=== PATIENT | male | born 1950 | race Caucasian/White ===

== ENCOUNTER 2025-09-04 09:52 | Inpatient (IN) | payer OTHER ==
[~2025-09-04] VITALS: Ht 180.3 cm; Wt 115.6 kg
[2025-09-04 10:03] VITALS: TEMP 99
--- NOTE | 2025-09-04 10:23 | ED.PDOC ---
HPI Comments 75-year-old male presents here with sharp chest discomfort to the middle of his chest that lasted about 3 hours. He states this occurred in the middle of the night he was sitting in his recliner watching TV as he was unable to sleep. States he was sleeping no more than 15 minutes. He states this was unprovoked. He states eventually this chest pain subsided by itself. No history of similar pain in the past. Currently chest pain free. States he has not been sick recently. No recent cough cold runny nose fever or chills. Chief Complaint: Chest Pain Time Seen by MD: 10:55 Reviewed Notes: Nurses Notes, Medications, Allergies Allergies: Uncoded Allergies: PENICILLIN (Allergy, Severe, 09/04/25) Information Source: Patient Mode of Arrival: Ambulatory Severity: Moderate Timing: Hours Duration: Hours Prehospital treatment: None Location: Chest (R), Chest (L) Radiation: No Radiation Onset: With Light Exertion Cardiac Risk Factors: None PE Risk Factors: None History of: None Associated Signs and Symptoms: None Past Medical History PAST MEDICAL HISTORY: DM, High Lipids, HTN Past Medical History (Other): glaucoma Surgical History (Other): glaucoma sx, lithotripsy Family History Family History: Reviewed,noncontributory to illness, Unknown Social History Smoker: Non-Smoker Alcohol: Denies ETOH Use Drugs: Denies Drug Use Lives In: Home Constitutional: denies: chills, diaphoresis, fatigue, fever, malaise, sweats, weakness, others EENTM: denies: blurred vision, double vision, ear bleeding, ear discharge, ear drainage, ear pain, ear ringing, eye pain, eye redness, hearing loss, mouth pain, mouth swelling, nasal discharge, nose bleeding, nose congestion, nose pain, photophobia, tearing, throat pain, throat swelling, voice changes, others Respiratory: denies: cough, hemoptysis, orthopnea, SOB at rest, shortness of breath, SOB with excertion, stridor, wheezing, others Cardiovascular: reports: chest pain; denies: dizzy spells, diaphoresis, Dyspnea on exertion, edema, irregular heart beat, left arm pain, lightheadedness, palpitations, PND, syncope, others Gastrointestinal: denies: abdomen distended, abdominal pain, blood streaked bowels, constipated, diarrhea, dysphagia, difficulty swallowing, hematemesis, melena, nausea, poor appetite, poor fluid intake, rectal bleeding, rectal pain, vomiting, others Genitourinary: denies: burning, dysuria, flank pain, frequency, hematuria, inc ontinence, penile discharge, penile sore, pain, testicle pain, testicle swelling, urgency, others Neurological: denies: dizziness, fainting, headache, left sided numbness, left sided weakness, numbness, paresthesia, pre-existing deficit, right sided numbness, right sided weakness, seizure, speech problems, tingling, tremors, weakness, others Integumetry: denies: bruises, change in color, change in hair/nails, dryness, laceration, lesions, lumps, rash, wounds, others Allergic/Immunocompromised: denies: Difficulty Healing, Frequent Infections, Hives, Itching, others Hematologic/Lymphatic: denies: anemia, blood clots, easy bleeding, easy bruising, swollen glands, others Endocrine: denies: excessive hunger, excessive sweating, excessive thirst, excessive urination, flushing, intolerance to cold, intolerance to heat, unexplained weight gain, unexplained weight loss, others Psychiatric: denies: anxiety, bipolar disorder, depression, hopeless, panic disorder, schizophrenia, sleepless, suicidal, others All Other Systems: Reviewed and Negative Physical Exam General Appearance: No Apparent Distress, Normal HEENT: Normal ENT Inspection, Pharynx Normal, TMs Normal Neck: Full Range of Motion, Non-Tender, Normal, Normal Inspection Respiratory: Chest Non-Tender, Lungs Clear, No Accessory Muscle Use, No Respiratory Distress, Normal Breath Sounds Cardiovascular: No Edema, No JVD, No Murmur, No Gallop, Normal Peripheral Pulses, Regular Rate/Rhythm Breast Exam: Deferred Gastrointestinal: No Organomegaly, Non Tender, No Pulsatile Mass, Normal Bowel Sounds, Soft Genitalia: Deferred Pelvic: Deferred Rectal: Deferred Extremities: No calf tenderness, Normal capillary refill, Normal inspection, Normal range of motion, Non-tender, No pedal edema Musculoskeletal : Apperance: Normal Neurologic: Alert, No Motor Deficits, Normal Affect, Normal Mood, No Sensory Deficits Cerebellar Function: Normal Reflexes: Normal Skin: Dry, Normal Color, Warm Lymphatic: No Adenopathy EKG EKG #1: Pulse Rate (adult): 69 [place]: Normal Cardiac Rhythm: NSR Block: None Hypertrophy: None ST: Normal Comments Sinus rhythms rate of 69 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 Was a procedure done?: No CP Differential Dx Differential Diagnosis: Anxiety / Panic Attack, Other Differential Diagnosis: N/A Differential Diagnosis: Angina, Aortic dissection, Cholelithiasis, Costochondritis, Esophageal reflux/spasm, Myocardial Infarction, Pneumonia, Pneumothorax, Pulmonary Embolus, Other (CHEST PAIN) Comment gastritis X-Ray, Labs, Meds, VS Vital Signs Date Time Temp Pulse Resp B/P (MAP) Pulse Ox O2 Delivery O2 Flow Rate FiO2 09/04/25 10:59 69 09/04/25 10:56 66 09/04/25 10:11 69 09/04/25 10:03 99.0 69 17 182/82 95 99.0 Lab Test 09/04/25 11:59 09/04/25 11:02 Range/Units Troponin I High Sensitivity Pending 3 L </=54 ng/L White Blood Count 5.3 4.4-10.8 10^3/uL Red Blood Count 5.16 4.5-5.90 10^6/uL Hemoglobin 14.4 13.5-17.5 g/dL Hematocrit 42.6 41.0-53.0 % Mean Corpuscular Volume 82.6 80.0-100.0 fL Mean Corpuscular Hemoglobin 27.8 L 28.0-32.0 pg Mean Corpuscular Hemoglobin Concent 33.7 32.0-36.0 g/dL Red Cell Distribution Width 17.1 H 11.8-14.3 % Platelet Count 139 L 140-450 10^3/uL Mean Platelet Volume 7.7 6.9-10.8 fL Neutrophils (%) (Auto) 57.8 37.0-80.0 % Lymphocytes (%) (Auto) 23.1 10.0-50.0 % Monocytes (%) (Auto) 9.6 0.0-12.0 % Eosinophils (%) (Auto) 8.0 H 0.0-7.0 % Basophils (%) (Auto) 1.5 0.0-2.0 % Neutrophils # (Auto) 3.1 1.6-8.6 10 ^3/uL Lymphocytes # (Auto) 1.2 0.4-5.4 10 ^3/uL Monocytes # (Auto) 0.5 0-1.3 10 ^3/uL Eosinophils # (Auto) 0.4 0-0.8 10 ^3/uL Basophils # (Auto) 0.1 0-0.2 10 ^3/uL Nucleated Red Blood Cells 0.0 % Sodium Level 137 136-145 mmol/L Potassium Level 4.1 3.5-5.1 mmol/L Chloride Level 104 98-107 mmol/L Carbon Dioxide Level 22 20-31 mmol/L Anion Gap 11 5-15 Blood Urea Nitrogen 10 9-23 mg/dL Creatinine 0.95 0.700-1.30 mg/dL Glomerular Filtration Rate Calc 82 >90 mL/min BUN/Creatinine Ratio 10.5 10.0-20.0 Serum Glucose 130 H 74-106 mg/dL Calcium Level 9.6 8.7-10.4 mg/dL [place] [id number] Ph: [phone] DIAGNOSTIC IMAGING Diagnostic Imaging Report : [id number] Signed PATIENT: JOEY SELBY ACCT: [id number] UNIT: [id number] : 1950 LOC: ER ROOM / BED: / AGE / SEX: 75 / M ADM STATUS: REG ER SERVICE 1050 ORDERING PHYSICIAN: MERRICK HERNADEZ MD PROCEDURE(s): CXR2 - CHEST TWO VIEWS ROUTINE REASON: Chest pain ORDER NUMBER(s): [id number], ACCESSION NUMBER(s): [id number] CHEST RADIOGRAPH Indication: Chest pain Technique: Frontal and lateral view of the chest was obtained Comparison: XY CHEST PORTABLE on DOS: 03/30/24 FINDINGS: Lines and Tubes: None Lungs: Left basilar subsegmental atelectasis. Pleura: No effusion. No pneumothorax. Cardiomediastinal contours: Unremarkable Bones: Unremarkable IMPRESSION: Left basilar subsegmental atelectasis ATED BY: TONI MENDOZA MD DICTATED DATE/TIME: 10/10/25 1125 SIGNED BY: TONI MENDOZA MD SIGNED DATE/TIME: 09/04/251124 CC: 75-year-old male presents here with chest discomfort. Reports sharp chest pain to the mid chest with no radiation. Patient states this occurred in the middle of the night while he was half awake watching TV in his recliner. EKG demonstrates right bundle-branch block and left fascicular block. No ST changes x2. Troponin is negative. CBC BMP unremarkable. Chest x-ray with no evidence of pneumonia pneumothorax or widened mediastinum that would suggest aortic dissection. Patient is currently chest pain free. However he does have several risk factors including diabetes hyperlipidemia hypertension. And his age. At this time he does have a heart score of 5. I have given aspirin in the ER. I feel he would benefit from inpatient admission. Patient is agreeable. Hospitalist team has been contacted. Time of 1ST Reevaluation: : Reevaluation 1ST: Unchanged Patient Education/Counseling: Diagnosis, Treatment, Prognosis Family Education/Counseling: No Family Present SEPSIS Sepsis Screen Date sepsis recognized/suspect: Sep 04, 2025 Time Sepsis recognized/suspect: 1005 Recent Procedure: No On Antibiotic Therapy: No Respiratory Rate >20: No Heart Rate >90: No Temp<36 C (96.8 F) or >38.3 C: No SBP <90 or MAP <65 mmHG: No New Acute Mental Status Change: No Is the patient on CPAP, BIPAP,: No Physician Orders Electrocardigram (09/04/25 10:49) Electrocardigram (09/04/25 11:49) Electrocardigram (09/04/25 13:49) Chest Two Views Routine (09/04/25 10:50) Troponin-I Hs (09/04/25 11:50) Troponin-I Hs (09/04/25 13:50) Vital Signs Date Time Temp Pulse Resp B/P (MAP) Pulse Ox O2 Delivery O2 Flow Rate FiO2 09/04/25 10:59 69 09/04/25 10:56 66 09/04/25 10:11 69 09/04/25 10:03 99.0 69 17 182/82 95 99.0 Laboratory Tests Test 09/04/25 11:02 White Blood Count 5.3 10^3/uL (4.4-10.8) Departure 1 Departure Time of Disposition: 12:18 Impression: Primary Impression: Chest pain Qualified Codes: R07.9 - Chest pain, unspecified Disposition: ADMITTED INPATIENT Condition: Fair Critical Care Note Critical Care Time?: No Stability Stability form required: No Heart Score Heart Score: Heart Score Response (Comments) Value History Moderate Suspicious 1 EKG Normal 0 Age >65 2 Risk Factors >3 or Hx ASHD 2 Troponin Normal limit 0 Total 5 I personally scribed for MERRICK HERNADEZ MD ([email or web address]) on 09/04/25 at 10:23. Electronically submitted by Francisco Javier Izquierdo ([employer]). I personally scribed for MERRICK HERNADEZ MD ([email or web address]) on 09/04/25 at 10:59. Electronically submitted by Francisco Javier Izquierdo ([employer]). MERRICK HERNADEZ MD Sep 04, 2025 10:23
--- NOTE | 2025-09-04 11:27 | DVH ---
CHEST RADIOGRAPH Indication: Chest pain Technique: Frontal and lateral view of the chest was obtained Comparison: XY CHEST PORTABLE on DOS: 03/30/24 FINDINGS: Lines and Tubes: None Lungs: Left basilar subsegmental atelectasis. Pleura: No effusion. No pneumothorax. Cardiomediastinal contours: Unremarkable Bones: Unremarkable IMPRESSION: Left basilar subsegmental atelectasis
[2025-09-04 11:29] LABS: Hematocrit 42.6 % (41.0-53.0); Hemoglobin 14.4 g/dL (13.5-17.5); Mean Corpuscular Hemoglobin 27.8 pg (28.0-32.0); Mean Corpuscular Volume 82.6 fL (80.0-100.0); Nucleated Red Blood Cells % 0.0 %
[2025-09-04 11:38] LABS: Chloride 104 mmol/L (98-107); Potassium 4.1 mmol/L (3.5-5.1); Sodium 137 mmol/L (136-145)
[2025-09-04 11:39] LABS: Anion Gap 11 (5-15); Calcium 9.6 mg/dL (8.7-10.4); Carbon Dioxide 22 mmol/L (20-31)
[2025-09-04 11:44] LABS: BUN/Creatinine Ratio 10.5 (10.0-20.0); Blood Urea Nitrogen 10 mg/dL (9-23)
[2025-09-04 11:45] LABS: Glucose 130 mg/dL (74-106)
--- NOTE | 2025-09-04 12:57 | ECG ---
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
--- NOTE | 2025-09-04 12:59 | ECG ---
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
[2025-09-04] MEDS ORDERED: MORPHINE SULFATE 4 MG/ML SYR/VIAL IV PRN (14:00)
[2025-09-04] MEDS ORDERED: MORPHINE SULFATE INJ 2 MG/ml SYRG IV PRN (14:00)
[2025-09-04] MEDS ORDERED: ONDANSETRON HCL 4 MG/2 ML VIAL IV PRN (14:00)
[2025-09-04] MEDS ORDERED: ACETAMINOPHEN 325 MG TAB PO PRN (14:00)
[2025-09-04] MEDS ORDERED: NITROGLYCERIN 0.4 MG SL TAB SL PRN ×2 (14:00)
[2025-09-04] MEDS ORDERED: HYDR25TA5 PO (14:02)
--- NOTE | 2025-09-04 14:06 | DVHHP2 ---
History of Present Illness Reason for Visit: Chest pain History of Present Illness Sarbjit De Leon is a 75-year-old male with past medical history of diabetes, hyperlipidemia, hypertension, glaucoma status post surgery on left x2, bladder surgery, lithotripsy who presents to the ED with chest pain that started this morning for about 3 hours. He reports that the time he was on his recliner watching TV and suddenly the pain came. Patient reports that it was 5/10 sharp and constant. He reports that there are no triggering or alleviating factors. Upon examination patient reports that his chest pain is 0. He states that he wants to leave against medical advice. Patient also reports that he is compliant with his medications. Patient denies any recent trauma or injury, recent sick contacts, recent ingestion of spoiled food, recent travels, shortness of breath, fever, chills, lightheadedness, weakness, dizziness, abdominal pain, nausea, vomiting, diarrhea, or urinary symptoms. Cardiovascular: HTN, hyperipidemia Endocrine: Diabetes Past Medical History Glaucoma Past Surgical History: Other (Trabeculectomy and lithotripsy) Family History: Other (Both ) Smoke: No ALCOHOL: none Drugs: None Lives: Alone Domestic Violence: Neg Review of Systems Cardiovascular: Chest Pain Allergies: Coded Allergies: Penicillins (Verified Allergy, Severe, 09/04/25) Exam Vital Signs Vital Signs Date Time Temp Pulse Resp B/P (MAP) Pulse Ox O2 Delivery O2 Flow Rate FiO2 09/04/25 12:56 62 09/04/25 10:03 99.0 17 182/82 95 99.0 General Appearance: Alert, Oriented X3, Cooperative, No acute distress HEENT: Atraumatic, PERRLA, EOMI, Mucous membr. moist/pink Respiratory: Clear to auscultation, Normal air movement Cardiovascular: Regular rate, Normal S1, Normal S2 Abdominal: Normal bowel sounds, Soft Extremities: No clubbing, No cyanosis, Normal pulses Neuro: Normal gait, Normal speech, Strength at 5/5 X4 ext, Normal tone, Sensation intact Psych/Mental Status: Mental status NL, Mood NL Labs/Xrays Labs Test 09/04/25 11:59 09/04/25 11:02 Range/Units Troponin I High Sensitivity 3 L </=54 ng/L White Blood Count 5.3 4.4-10.8 10^3/uL Red Blood Count 5.16 4.5-5.90 10^6/uL Hemoglobin 14.4 13.5-17.5 g/dL Hematocrit 42.6 41.0-53.0 % Mean Corpuscular Volume 82.6 80.0-100.0 fL Mean Corpuscular Hemoglobin 27.8 L 28.0-32.0 pg Mean Corpuscular Hemoglobin Concent 33.7 32.0-36.0 g/dL Red Cell Distribution Width 17.1 H 11.8-14.3 % Platelet Count 139 L 140-450 10^3/uL Mean Platelet Volume 7.7 6.9-10.8 fL Neutrophils (%) (Auto) 57.8 37.0-80.0 % Lymphocytes (%) (Auto) 23.1 10.0-50.0 % Monocytes (%) (Auto) 9.6 0.0-12.0 % Eosinophils (%) (Auto) 8.0 H 0.0-7.0 % Basophils (%) (Auto) 1.5 0.0-2.0 % Neutrophils # (Auto) 3.1 1.6-8.6 10 ^3/uL Lymphocytes # (Auto) 1.2 0.4-5.4 10 ^3/uL Monocytes # (Auto) 0.5 0-1.3 10 ^3/uL Eosinophils # (Auto) 0.4 0-0.8 10 ^3/uL Basophils # (Auto) 0.1 0-0.2 10 ^3/uL Nucleated Red Blood Cells 0.0 % Sodium Level 137 136-145 mmol/L Potassium Level 4.1 3.5-5.1 mmol/L Chloride Level 104 98-107 mmol/L Carbon Dioxide Level 22 20-31 mmol/L Anion Gap 11 5-15 Blood Urea Nitrogen 10 9-23 mg/dL Creatinine 0.95 0.700-1.30 mg/dL Glomerular Filtration Rate Calc 82 >90 mL/min BUN/Creatinine Ratio 10.5 10.0-20.0 Serum Glucose 130 H 74-106 mg/dL Calcium Level 9.6 8.7-10.4 mg/dL CHEST RADIOGRAPH Indication: Chest pain Technique: Frontal and lateral view of the chest was obtained Comparison: XY CHEST PORTABLE on DOS: 03/30/24 FINDINGS: Lines and Tubes: None Lungs: Left basilar subsegmental atelectasis. Pleura: No effusion. No pneumothorax. Cardiomediastinal contours: Unremarkable Bones: Unremarkable IMPRESSION: Left basilar subsegmental atelectasis SEPSIS Sepsis Screen Date sepsis recognized/suspect: Sep 04, 2025 Time Sepsis recognized/suspect: 1005 Recent Procedure: No On Antibiotic Therapy: No Respiratory Rate >20: No Heart Rate >90: No Temp<36 C (96.8 F) or >38.3 C: No SBP <90 or MAP <65 mmHG: No New Acute Mental Status Change: No Is the patient on CPAP, BIPAP,: No Physician Orders Electrocardigram (09/04/25 13:49) Chest Two Views Routine (09/04/25 10:50) Troponin-I Hs (09/04/25 13:50) Vital Signs Date Time Temp Pulse Resp B/P (MAP) Pulse Ox O2 Delivery O2 Flow Rate FiO2 09/04/25 12:56 62 09/04/25 10:59 69 09/04/25 10:56 66 09/04/25 10:11 69 09/04/25 10:03 99.0 69 17 182/82 95 99.0 Laboratory Tests Test 09/04/25 11:02 White Blood Count 5.3 10^3/uL (4.4-10.8) Medications Medications Dose Ordered Sig/Cameron Route Start Time Stop Time Status Last Admin Dose Admin Aspirin 162 mg ONCE ONCE PO 09/04/25 11:00 09/04/25 11:01 DC 09/04/25 12:19 162 MG Assessment/Plan Assessment/Plan Assessment Chest pain rule out ACS History of diabetes History of hyperlipidemia History of hypertension History of glaucoma status post surgery on left x2 History of lithotripsy History of bladder surgery Plan Admit to tele Antiemetics Pain management Aspirin + statin ACS workup Echo ordered Hemoglobin A1c ISS and Accu-Cheks Antihypertensives Diet Home medications reconciled DVT prophylaxis-SCDs PUD prophylaxis-not indicated no history of GERD or GI bleed Discussed plan of care with patient and nurse [id number] Preventive counseling healthy eating habits, physical activity, and regular checkups Patient wants to leave AMA discussed risks and benefits and still insisted on leaving against medical advice. Plan discussed with: Patient Date of Service: Sep 04, 2025 Billing Provider: SHARIF KAMARA Common Visit Codes: 17470-[id number] INP/OBS CARE (HIGH) Secondary Visit Codes: [id number] COUNSELING IND SHARIF KAMARA [facility] Sep 04, 2025 14:06
[2025-09-04] MEDS ORDERED: DEXTROSE (50%) 50ML SYRG IV PRN (14:15)
[2025-09-04 14:26] VITALS: BP 157/83; PULSE 60; RESP 16; O2SAT 95
[2025-09-04] MEDS ORDERED: InsuLIN REG 1unit/0.01ml Soln (100units/ml) SC SCH (17:00)
[2025-09-04] MEDS ORDERED: ACCU-CHEK COMFORT CURVE STRIP VI SCH (17:00)
[2025-09-04] MEDS ORDERED: ATORVASTATIN 20 MG TAB PO SCH (22:00)
[2025-09-05] MEDS ORDERED: FUROSEMIDE 40 MG/4 ML VIAL IV SCH (10:00)
[2025-09-05] MEDS ORDERED: hydroCHLOROthiazide 25 MG TAB PO SCH (10:00)
--- NOTE | 2025-09-09 13:15 | ECG ---
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
== END 2025-09-04 21:00 | disposition left against medical advice (07) | DRG 311 ==
LOC: ER 09:52 → OVERFLOW 13:54
DX: I24.9 Acute ischemic heart disease, unspecified (principal); I45.10 Unspecified right bundle-branch block; I44.4 Left anterior fascicular block; Z53.29 Procedure and treatment not carried out because of patient's decision for other reasons; I10 Essential (primary) hypertension; E11.9 Type 2 diabetes mellitus without complications; H40.89 Other specified glaucoma; E78.5 Hyperlipidemia, unspecified; Z88.0 Allergy status to penicillin; Z79.899 Other long term (current) drug therapy
CPT/HCPCS: 36415; 71046; 80048; 83036; 84439; 84443; 84484; 85025; 93005; G0378